=== PATIENT | female | born 1950 | race Two or more races ===

== ENCOUNTER 2017-02-11 12:29 | Emergency (ER) | payer MEDICARE, OTHER ==
[~2017-02-11] VITALS: Ht 154.9 cm; Wt 86.2 kg
--- NOTE | 2017-02-11 13:11 | Emergency Room Report ---
History of Present Illness General Chief Complaint: Multiple Trauma/Fall Source: Patient Present Illness HPI 66-year-old female presents emergency department complaining of pain in the left knee and distal left foot times one day. Patient status post mechanical trip and fall on stairs. Patient reports her pain as 10/10 in severity and states it is exacerbated upon palpation or weight-bearing. Patient denies previous injuries to the extremity. Patient also reports abrasion to the left knee with mild bleeding. Patient denies taking blood thinning medications. Patient denies hitting her head she denies loss of consciousness. Patient denies allergies to medications. Pt UTD with tetanus. Denies numbness tingling or loss of sensation or gross motor movements of the extremities, incontinence of bowel or bladder. Denies CP, Palpitations, LOC, AMS, dizziness, Changes in Vision, Sensation, paresthesias, or a sudden severe headache. Allergies: Coded Allergies: No Known Allergies (Unverified , 02/11/17) Patient History Past Medical History: see triage record Past Surgical History: none Pertinent Family History: none Now: No Immunizations: UTD Reviewed Nursing Documentation: PMH: Agreed, PSxH: Agreed Nursing Documentation-PMH Past Medical History: No Stated History Review of Systems All Other Systems: negative except mentioned in HPI Physical Exam Vital Signs Date Time Temp Pulse Resp B/P Pulse Ox O2 Delivery O2 Flow Rate FiO2 02/11/17 12:43 97.3 92 15 119/70 100 Room Air Sp02 EP Interpretation: reviewed, normal General Appearance: no apparent distress, alert, GCS 15, non-toxic Head: normocephalic, atraumatic Eyes: bilateral eye PERRL, bilateral eye normal inspection ENT: hearing grossly normal, normal pharynx, no angioedema, normal voice Neck: full range of motion, supple/symm/no masses Respiratory: lungs clear, normal breath sounds, speaking full sentences Cardiovascular #1: regular rate, rhythm, no edema, normal capillary refill Cardiovascular #2: 2+ dorsalis pedis (R), 2+ dorsalis pedis (L) Musculoskeletal: back normal, gait/station normal, normal range of motion, tender - ttp to distal left foot, swelling and bruising note to the base of 3rd and 4th toes. TTP to the left knee, abrasion noted, no bruising. , no increase in laxity noted to the joint. Neurologic: alert, oriented x3, responsive, motor strength/tone normal, sensory intact, speech normal Psychiatric: judgement/insight normal, memory normal, mood/affect normal Skin: normal color, no rash, warm/dry, well hydrated, other - ecchymosis to the dorsum of the distal left foot, abrasion to the anterior left knee, no bruising noted on the knee Medical Decision Making PA Attestation Dr. Wang is my supervising Physician whom patient management has been discussed with. Diagnostic Impression: Primary Impression: Abrasion Additional Impressions: Contusion Qualified Codes: S80.02XA - Contusion of left knee, initial encounter Foot fracture, left Qualified Codes: S92.902A - Unspecified fracture of left foot, initial encounter for closed fracture ER Course 66-year-old female presents emergency department complaining of pain in the left knee and distal left foot times one day. Patient status post mechanical trip and fall on stairs. Patient reports her pain as 8/10 in severity and states it is exacerbated upon palpation or weight-bearing. Patient denies previous injuries to the extremity. Patient also reports abrasion to the left knee with mild bleeding. Patient denies taking blood thinning medications. Patient denies hitting her head she denies loss of consciousness. Patient denies allergies to medications. Denies numbness tingling or loss of sensation or gross motor movements of the extremities, incontinence of bowel or bladder. Denies CP, Palpitations, LOC, AMS, dizziness, Changes in Vision, Sensation, paresthesias, or a sudden severe headache. Ddx considered but are not limited to Fracture, dislocation, contusion, Sprain/ Strain/Spasm, abrasion, laceration Vital signs: are WNL, pt. is afebrile H&PE are most consistent with abrasion and musculoskeletal injury to the left knee and foot. contusion as well. ORDERS: - X-ray Left knee 3 views - negative for fx, Dislocation, or significant soft tissue injury, per preliminary read in ED by Dr. Vásquez - X-ray Left Foot 3 views - Positive for fx of the distal 3rd and 4th metatarsals, negative Dislocation, or significant soft tissue injury, per preliminary read in ED by Dr. Vásquez ED INTERVENTIONS: - [place] PO -Bacitracin applied to abrasion by RN. - Posterior Short leg Splint applied to the left foot by electromedical equipment technician. Pt. remains neurovascularly intact. -Pt is provided with crutches DISCHARGE: At this time pt. is stable for d/c to home. Will provide printed patient care instructions, and any necessary prescriptions. Care plan and follow up instructions have been discussed with the patient prior to discharge. Last Vital Signs Date Time Temp Pulse Resp B/P Pulse Ox O2 Delivery O2 Flow Rate FiO2 02/11/17 12:43 97.3 92 15 119/70 100 Room Air Disposition: HOME, SELF-CARE Condition: Stable Scripts Bacitracin/Polymyxin B Sulfate (BACITRACIN-POLYMYXIN OINTMENT) 28.35 Gm Oint...g. 1 APPLIC TP BID, #28.3 GM Prov: Lucretia Stanley 02/11/17 Ibuprofen* (MOTRIN*) 600 Mg Tablet 600 MG ORAL THREE TIMES A DAY, #30 TAB 0 Refills Prov: Lucretia Stanley 02/11/17 Hydrocodone Bit/Acetaminophen 5-325* (NORCO 5-325*) 1 Each Tablet 1 TAB ORAL Q6H Y for For Pain, #10 TAB 0 Refills Prov: uLcretia Stanley 02/11/17 Patient Instructions: Toe Fracture Additional Instructions: Take medications as directed. Follow up with PCP in 3-5 days Return sooner to ED if new symptoms occur, or current symptoms become worse. Do not drink alcohol, drive, or operate heavy machinery while taking [ ] as this may cause drowsiness. - Please note that this Emergency Department Report was dictated using [email or web address] technology software, occasionally this can lead to erroneous entry secondary to interpretation by the dictation equipment. Lucretia Stanley Feb 11, 2017 13:11
[2017-02-11] MEDS ORDERED: Bacitracin Oint UD TOPIC ONE (13:15)
[2017-02-11] MEDS ORDERED: Norco 5mg/325mg tab ORAL ONE (13:15)
[2017-02-11] MEDS ORDERED: IBUPROFEN600 MG ORAL (14:48)
[2017-02-11] MEDS ORDERED: BACITRACIN-P28.35 GM TP (14:48)
[2017-02-11] MEDS ORDERED: NORCO 5-325 TA1 EACH ORAL (14:48)
[2017-02-11 15:07] VITALS: BP 122/74
--- NOTE | 2017-02-11 15:26 | Diagnostic Imaging Report ---
Indication: PAIN Technique: 3 views left foot Comparison: none Findings: There is a nondisplaced fracture of the fourth metatarsal neck. No other definite acute fractures demonstrated. There is a small calcaneal spur. The bones are osteoporotic. There is pes cavus deformity Impression: Positive for fourth metatarsal neck fracture. No other acute bony trauma Findings discussed by phone with Lucretia in the emergency department at the time of interpretation
--- NOTE | 2017-02-11 15:28 | Diagnostic Imaging Report ---
Indication: PAIN Technique: 3 views of the left knee Comparison: None Findings:There is prepatellar soft tissue swelling. No acute fractures. No dislocations. Joint spaces are preserved. No suprapatellar effusion Impression:No acute process
== END 2017-02-11 15:08 | disposition home or self-care (01) ==
LOC: EMR 13:28
DX: S80.02XA Contusion of left knee, initial encounter (principal); S92.902A Unspecified fracture of left foot, initial encounter for closed fracture; S80.212A Abrasion, left knee, initial encounter; W10.9XXA Fall (on) (from) unspecified stairs and steps, initial encounter; Y92.9 Unspecified place or not applicable
CPT/HCPCS: 29515; 99284